=== PATIENT | male | born 1960 ===

== ENCOUNTER 2023-04-17 11:56 | Outpatient (CLI) | payer BC ==
--- NOTE | 2023-04-17 17:28 | XRAY Report ---
PROCEDURE: Knee 3 View RT INDICATIONS: RIGHT KNEE PAIN TECHNIQUE: 3 views of the right knee(s) were acquired. COMPARISON: None. FINDINGS: Bones: No fractures or dislocations. Mild tricompartmental osteoarthritis is seen. No patella sublux ation. No suspicious bony lesions. Soft tissues: moderate knee joint effusion. No suspicious soft tissue calcifications or masses. IMPRESSION: No acute bony abnormality. Mild tricompartmental osteoarthritis and moderate joint effusion. Reviewed by: Dmitriy Ren MD on 04/17/2023 5:26 PM PDT Approved by: Dmitriy Ren MD on 04/17/2023 5:26 PM PDT Station ID: [id number]
== END 2023-04-17 23:59 | disposition home or self-care (01) ==
LOC: DI.S 11:56
PROVIDERS: ATTEND Physician Assistant
DX: M17.11 Unilateral primary osteoarthritis, right knee (principal); M25.461 Effusion, right knee